=== PATIENT | female | born 1970 | race Caucasian/White ===

== ENCOUNTER 2019-01-12 13:42 | Emergency (ER) | payer OTHER ==
[~2019-01-12] VITALS: Ht 180.3 cm; Wt 86.2 kg
[2019-01-12] MEDS ORDERED: TUSNEL LIQUID178 ML PO (14:20)
[2019-01-12] MEDS ORDERED: ALLEGRA-D 24 H1 EACH PO (14:20)
[2019-01-12] MEDS ORDERED: ZITHROMAX500 MG PO (14:20)
== END 2019-01-12 14:35 | disposition home or self-care (01) ==
LOC: ER 13:42
DX: H83.8X3 Other specified diseases of inner ear, bilateral (principal)